=== PATIENT | male | born 1955 | race Caucasian/White ===

== ENCOUNTER → 2021-02-08 | Day surgery (SDC) | payer OTHER ==
[~2021-02-08] VITALS: Ht 182.9 cm; Wt 98.9 kg
[~2021-02-08] MED LIST: FARXIGA10 MG PO; HYDROCODON-ACE1 EAC7 PO; METFORMIN HCL1000 MG PO; NEXIUM 24HR20 M2 PO; PREGABALIN150 MG PO; ROSUVASTATIN CA20 MG PO; RYBELSUS7 MG PO; XARELTO20 MG PO
--- NOTE | ~2021-02-08 | O ---
[facility] [place] [address] OPERATIVE REPORT Name: LUI SALAS Room #: REG [facility]#: [id number] Admission: 02/08/21 Attend Phys: Reianldo Andrade MD Discharge: Date of : 53 Report #: [id number] THIS REPORT FOR: cc: Mariah Connors MD Physician not on staff Reinaldo Andrade MD ~ cc: Robert Magallanes DATE OF SERVICE: 02/08/2021 PREOPERATIVE DIAGNOSIS: Umbilical hernia. POSTOPERATIVE DIAGNOSIS: Umbilical hernia. PROCEDURE: Umbilical hernia repair. SURGEON: Reinaldo Andrade MD ANESTHESIA USED: Local IV sedation. DESCRIPTION OF PROCEDURE: The patient was brought to the operating room and placed on the operating table in the supine position. Sequential compression devices were in place for DVT prophylaxis. There is no indication for preoperative antibiotics. The patient underwent IV sedation. The abdomen was then prepped and draped in a sterile fashion. Skin and subcutaneous tissue around the umbilicus was then infiltrated with 0.5% Marcaine 1% Xylocaine with epinephrine. A transverse infraumbilical skin incision was then performed using a #15 scalpel blade. Hemostasis obtained using electrocautery. Dissection was carried down through the subcutaneous tissue to the fascia and the hernia sac. The hernia sac was dissected free and the fascial edges were dissected free. They were easily closed without any tension using interrupted [id number] #1 Prolene sutures. The umbilicus was then tacked to the fascia using 2-0 chromic suture. Deep and superficial subcutaneous tissue was then reapproximated using simple interrupted 2-0 chromic sutures and the skin then closed with a running 4-0 subcuticular Vicryl stitch. The wound was then dressed with Dermabond, Telfa, 4 x 4 gauze, sponge, and tape. The patient was then awakened from the IV sedation and taken to the recovery room awake, alert and in good condition. Estimated blood loss was approximately 5 mL and the patient tolerated the procedure well. All sponge, lap and instrument counts were correct x2. By: [id number] Reinaldo Andrade MD /nt
[2021-02-08 07:26] VITALS: BP 156/83
[2021-02-08 09:46] VITALS: BP 156/83
--- NOTE | 2021-02-09 07:39 | EKG ---
[place] [address] [facility] [employer] [place] [address] ELECTROCARDIOGRAM REPORT Name: LUI SALAS Room #: REG [facility].#: [id number] Admission: 02/08/21 Attend Phys: Reinaldo Andrade MD Discharge: Date of : 53 Report #: [id number] [facility] Test Date: 2021-02-08 Test Time: 07:32:51 Pat Name: LUI SALAS Department: Room: Gender: M Window Caser: KEVON : 1955 Requested By: Faith Pfeiffer Order Number: [id number] MD: Zachary Daniel Measurements Intervals [place] Rate: 68 P: -16 MD: 167 QRS: -32 QRSD: 100 T: -3 QT: 409 QTc: 436 Interpretive Statements Sinus rhythm Left axis deviation Borderline T abnormalities, inferior leads Compared to ECG 12/10/2007 17:39:17 Left-axis deviation now present T-wave abnormality now present Poor R-wave progression no longer present Electronically Signed On 02-09-2021 7:38:47 [employer] by Zachary Daniel [email or web address] <ELECTRONICALLY SIGNED> By: Zachary Daniel MD, [facility] [id number] 1 1 Zachary Daniel MD, [facility] /EPI
== END | disposition home or self-care (01) ==
LOC: OR 06:07
PROVIDERS: ATTEND Surgery
DX: K42.9 Umbilical hernia without obstruction or gangrene (principal); I10 Essential (primary) hypertension; E78.5 Hyperlipidemia, unspecified; I48.92 Unspecified atrial flutter; E11.9 Type 2 diabetes mellitus without complications; K21.9 Gastro-esophageal reflux disease without esophagitis; Z98.890 Other specified postprocedural states; Z79.899 Other long term (current) drug therapy; Z20.822 Contact with and (suspected) exposure to COVID-19; Z86.718 Personal history of other venous thrombosis and embolism; Z79.01 Long term (current) use of anticoagulants
CPT/HCPCS: 50010; 50101; 50386; 50403; 54118; 56524; 56525; 56526; 62110; 62850; 70005